=== PATIENT | male | born 1945 | race Caucasian/White ===

== ENCOUNTER → 2017-03-26 | Day surgery (SDC) | payer MEDICARE, BC ==
[2017-03-25 10:14] LABS: BASOPHILS # (AUTO) 0.1 (0.0-0.1); BASOPHILS % 0.7 % (0.0-1.0); EOSINOPHILS # (AUTO) 0.2 (0.0-0.4); EOSINOPHILS % 2.2 % (0.0-6.0); HEMOGLOBIN 15.4 g/dL (14.0-18.0); LYMPHOCYTES # (AUTO) 1.8 (1.0-3.2); LYMPHOCYTES % 26.9 % (18.0-39.1); MEAN CORPUSCULAR HEMOGLOBIN 31.2 pg (28-32); MEAN CORPUSCULAR HGB CONC 33.5 g/dL (31-35); MEAN CORPUSCULAR VOLUME 93.1 fL (81-99); MONOCYTES # (AUTO) 0.7 (0.2-0.8); MONOCYTES % 10.6 % (4.4-11.3); NEUTROPHILS # (AUTO) 3.9 (2.1-6.9); NEUTROPHILS % 58.7 % (38.7-80.0); PLATELET COUNT 196 x10e3/uL (140-360); RED BLOOD COUNT 4.94 x10e6/uL (4.3-5.7); RED CELL DISTRIBUTION WIDTH 14.6 % (11.7-14.4)
[2017-03-25 10:38] LABS: ALANINE AMINOTRANSFERASE 42 IU/L (0-55); ALBUMIN/GLOBULIN RATIO 1.3 (0.8-2.0); ALKALINE PHOSPHATASE 88 IU/L (40-150); ANION GAP 12.6 mmol/L (8-16); BLOOD UREA NITROGEN 12 mg/dL (7-26); BUN/CREATININE RATIO 13 (6-25); CARBON DIOXIDE 26 mmol/L (22-29); CHLORIDE 110 mmol/L (98-107); CHOL/HDL RATIO 3.2 (3.9-4.7); CHOLESTEROL 134 MD/DL (0-199); CREATININE, SERUM 0.91 mg/dL (0.72-1.25); EST GLOMERULAR FILTRATION RATE > 60 ML/MIN (60-); GLUCOSE 102 mg/dL (74-118); HDL CHOLESTEROL 42 MG/DL (40-60); LDL CHOLESTEROL 80 MG/DL (60-130); POTASSIUM 4.6 mmol/L (3.5-5.1); SODIUM 144 mmol/L (136-145); TRIGLYCERIDES 61 MG/DL (0-149)
[~2017-03-26] VITALS: Ht 172.7 cm; Wt 81.6 kg
[~2017-03-26] MED LIST: ASPIRIN 325 MG TAB ONE; ASPIRIN325 MG PO; ATENOLOL25 MG; ATENOLOL50 MG PO; ATORVASTATIN CA20 MG PO; BIVALIRUDIN 250 MG/VIAL IV ONE; CLOPIDOGREL75 MG PO; FENTANYL CITRATE/PF 100MCG/2 ML INJ ONE; FINASTERIDE5 MG; FINASTERIDE5 MG PO; FLOMAX0.4 MG PO; HEPARIN SOD/SOD CHLORIDE 2,000 ML ONE; IOPAMIDOL 370 MG/ML 200 ML INFUS..BTL INJ ONE; LIDOCAINE HCL 2% LOCAL 20 ML VIAL ONE; LOTREL 10-20 M1 EACH; METFORMIN HCL500 MG PO; MIDAZOLAM HCL 2 MG/2 ML VIAL ONE; MULTIVITAMIN; NITROGLYCERIN/D5W 200 MCG/ML 250 ML ONE; OMEGA 3 1,0001 EACH; PLAVIX75 MG PO; PRASUGREL 10 MG TAB ONE; SIMCOR 1,000-21 EACH; SODIUM CHLORIDE 0.9% 1000ML 1,000 ML IV SCH; SODIUM CHLORIDE 0.9% 1000ML 1,000 ML ONE; SODIUM CHLORIDE 0.9% 50ML 50 ML ONE; SYNTHROID175 MCG; TAMSULOSIN HCL0.4 MG; VICODIN ES 7.51 EACH PO; VITAMIN E400 UNI3
--- NOTE | 2017-03-26 14:55 | Operative Report ---
DATE OF PROCEDURE: March 26, 2017 PROCEDURES PERFORMED: 1. Left heart catheterization, selective coronary angiography. 2. Selective cannulation of 3 venous and 1 arterial bypass conduits. 3. Percutaneous transluminal coronary angioplasty and drug-eluting stent placement to the proximal circumflex artery. 4. Abdominal aortogram runoff to bilateral lower extremities. 5. Deployment of right groin Perclose. COMPLICATIONS: None. RECOMMENDATIONS: Continue dual antiplatelet therapy. Staged intervention on the right saphenous vein bypass to right posterior descending artery as well as staged intervention on the left superficial femoral artery with atherectomy and angioplasty. BLOOD LOSS: 10 mL. CONTRAST USED: 200 mL. Access obtained in the right femoral artery. A 6-Hong Konger sheath was placed. Abdominal aortogram with runoff was performed with diffuse disease in the abdominal aorta and iliac arteries. There was luminal stenosis of 30% without any focal stenosis, bilateral femoral arteries diffuse 30% to 50% with focal 90% stenosis of the left femoral artery in the midportion, which was heavily calcified. Infrapopliteal vessels were not well visualized. Pulmonary angiography demonstrates 20% stenosis of the left main. Left anterior descending artery stent was widely patent. Diagonal artery was occluded. Circumflex artery proximal 90% stenosis. Obtuse marginal branch had competitive filling, which was bypass. Right coronary artery was completely occluded in its proximal portion. Left internal mammary artery was not used for bypass. Saphenous vein bypass of obtuse marginal artery was widely patent. Saphenous vein bypass to right posterior descending artery was patent. However, at distal anastomosis 90% focal stenosis was noted. Saphenous vein bypass to the diagonal artery had extremely slow flow, and this was a large vessel with pooling. LV end-diastolic pressure of 18. No gradient across the aortic valve on pullback. A decision was made to intervene on the [place] circumflex artery. The patient received intravenous Angiomax and oral Effient for anticoagulation. The left main was cannulated using a 6-Hong Konger XB 3.5 guiding catheter. A short Runthrough wire was advanced across the lesion into the distal circumflex for support. Pre-dilatation with a 2 mm balloon, following which a single 2.5 x 28 mm Synergy drug-eluting stent was deployed at 14 atmospheres. Postdilated with a 2.75 mm balloon at 18 atmospheres with excellent end result less than 10% residual stenosis, LENI-3 flow. No complications encountered. Right groin repaired using Perclose. Patient observed in the hospital for 6 hours and then discharged home with recommendations for staged intervention of the right posterior descending artery as well as the left superficial femoral artery. Job#: [id number] CONY
== END | disposition home or self-care (01) ==
LOC: CATH LAB 11:09
PROVIDERS: ATTEND Internal Medicine Interventional Cardiology
DX: I25.810 Atherosclerosis of coronary artery bypass graft(s) without angina pectoris (principal); I25.82 Chronic total occlusion of coronary artery; I10 Essential (primary) hypertension; R94.39 Abnormal result of other cardiovascular function study; Z95.1 Presence of aortocoronary bypass graft; Z01.812 Encounter for preprocedural laboratory examination; Z79.02 Long term (current) use of antithrombotics/antiplatelets; Z79.82 Long term (current) use of aspirin
CPT/HCPCS: 93459; C9600; 36140; 36415; 75630; 77002; 80053; 80061; 85025; J0583; J2001; J2250; J7030; Q9967

== ENCOUNTER 2017-04-13 08:40 | Observation (INO) | payer MEDICARE, BC ==
[~2017-04-13] VITALS: Ht 172.7 cm; Wt 88.0 kg
[~2017-04-13 08:40] MED LIST changes: -ASPIRIN 325 MG TAB ONE; -BIVALIRUDIN 250 MG/VIAL IV ONE; -FENTANYL CITRATE/PF 100MCG/2 ML INJ ONE; -HEPARIN SOD/SOD CHLORIDE 2,000 ML ONE; -IOPAMIDOL 370 MG/ML 200 ML INFUS..BTL INJ ONE; -LIDOCAINE HCL 2% LOCAL 20 ML VIAL ONE; -MIDAZOLAM HCL 2 MG/2 ML VIAL ONE; -NITROGLYCERIN/D5W 200 MCG/ML 250 ML ONE; -PRASUGREL 10 MG TAB ONE; -SODIUM CHLORIDE 0.9% 1000ML 1,000 ML IV SCH; -SODIUM CHLORIDE 0.9% 1000ML 1,000 ML ONE; -SODIUM CHLORIDE 0.9% 50ML 50 ML ONE
[2017-04-13 09:43] LABS: BASOPHILS % 0.7 % (0.0-1.0); EOSINOPHILS # (AUTO) 0.2 (0.0-0.4); EOSINOPHILS % 3.2 % (0.0-6.0); HEMATOCRIT 46.8 % (38.2-49.6); HEMOGLOBIN 16.1 g/dL (14.0-18.0); LYMPHOCYTES # (AUTO) 1.6 (1.0-3.2); LYMPHOCYTES % 29.4 % (18.0-39.1); MEAN CORPUSCULAR HEMOGLOBIN 31.2 pg (28-32); MEAN CORPUSCULAR HGB CONC 34.4 g/dL (31-35); MEAN CORPUSCULAR VOLUME 90.7 fL (81-99); MONOCYTES # (AUTO) 0.6 (0.2-0.8); MONOCYTES % 10.6 % (4.4-11.3); NEUTROPHILS # (AUTO) 3.1 (2.1-6.9); NEUTROPHILS % 55.9 % (38.7-80.0); PLATELET COUNT 188 x10e3/uL (140-360); RED BLOOD COUNT 5.16 x10e6/uL (4.3-5.7); RED CELL DISTRIBUTION WIDTH 13.7 % (11.7-14.4)
[2017-04-13 10:15] LABS: ALANINE AMINOTRANSFERASE 39 IU/L (0-55); ALBUMIN 3.9 g/dL (3.5-5.0); ALBUMIN/GLOBULIN RATIO 1.2 (0.8-2.0); ALKALINE PHOSPHATASE 81 IU/L (40-150); ANION GAP 12.8 mmol/L (8-16); BLOOD UREA NITROGEN 13 mg/dL (7-26); BUN/CREATININE RATIO 15 (6-25); CALCIUM 8.9 mg/dL (8.4-10.2); CARBON DIOXIDE 24 mmol/L (22-29); CHLORIDE 107 mmol/L (98-107); CREATININE, SERUM 0.89 mg/dL (0.72-1.25); EST GLOMERULAR FILTRATION RATE > 60 ML/MIN (60-); GLUCOSE 125 mg/dL (74-118); POTASSIUM 3.8 mmol/L (3.5-5.1); SODIUM 140 mmol/L (136-145)
[2017-04-13 10:31] VITALS: BP 150/83
[2017-04-13] MEDS ORDERED: IOPAMIDOL 370 MG/ML 200 ML INFUS..BTL INJ ONE ×2 (10:50→11:25)
[2017-04-13] MEDS ORDERED: HEPARIN SOD/SOD CHLORIDE 2,000 ML ONE ×2 (10:50→10:51)
[2017-04-13] MEDS ORDERED: LIDOCAINE HCL 2% LOCAL 20 ML VIAL ONE (10:50)
[2017-04-13] MEDS ORDERED: MIDAZOLAM HCL 2 MG/2 ML VIAL ONE ×2 (10:50→11:18)
[2017-04-13] MEDS ORDERED: FENTANYL CITRATE/PF 100MCG/2 ML INJ ONE (10:50)
[2017-04-13] MEDS ORDERED: SODIUM CHLORIDE 0.9% 1000ML 1,000 ML ONE (10:51)
[2017-04-13] MEDS ORDERED: SODIUM CHLORIDE 0.9% 50ML 50 ML ONE (11:05)
[2017-04-13] MEDS ORDERED: BIVALIRUDIN 250 MG/VIAL IV ONE (11:05)
[2017-04-13] MEDS ORDERED: PRASUGREL 10 MG TAB ONE (11:41)
[2017-04-13 12:33] VITALS: BP 130/71
[2017-04-13 13:14] VITALS: BP 130/71
--- NOTE | 2017-04-13 16:08 | Operative Report ---
DATE OF PROCEDURE: April 13, 2017 INDICATIONS: Coronary artery disease, abnormal stress test. PROCEDURES PERFORMED 1. Selective cannulation of venous bypass conduit with coronary angiography and left heart catheterization. 2. Percutaneous transluminal coronary angioplasty and drug-eluting stent placement to the saphenous vein bypass graft to the right coronary artery. 3. Deployment of right groin Perclose. COMPLICATIONS: None. RECOMMENDATIONS: Dual-antiplatelet therapy for life. Access obtained in the right femoral artery. A 6-Niuean sheath was placed. The saphenous vein bypass graft was cannulated using a multipurpose 6-Niuean catheter. Angio-Max was used for anticoagulation. A short PhotoMania wire was advanced across the lesion for support. Pre-dilatation with a 2 mm balloon, following which a single 2.25 x 20 mm Whately [employer] Synergy stent was deployed at 14 atmospheres, post-dilated with a 3 mm balloon. Excellent end result, LENI-3 flow, less than 10% residual stenosis. No complications. Right groin sheath was repaired using Perclose. Patient was observed in the hospital for 6 hours and discharged home the same day. Job#: [id number] VAS
[2017-04-13 17:06] VITALS: BP 161/77
== END 2017-04-13 18:33 | disposition home or self-care (01) ==
LOC: CATH LAB 08:40 → IMCU 12:32
PROVIDERS: ADMIT Internal Medicine Interventional Cardiology; ATTEND Internal Medicine Interventional Cardiology
DX: I25.10 Atherosclerotic heart disease of native coronary artery without angina pectoris (principal); I10 Essential (primary) hypertension; R94.39 Abnormal result of other cardiovascular function study; Z86.73 Personal history of transient ischemic attack (TIA), and cerebral infarction without residual deficits; Z95.1 Presence of aortocoronary bypass graft
CPT/HCPCS: 92921; C9600; C9604; 36140; 36415; 77002; 80053; 82948; 85025; 92920; C1769; G0378; J0583; J2001; J2250; J7030; Q9967

== ENCOUNTER → 2017-05-04 | Day surgery (SDC) | payer MEDICARE, BC ==
[2017-05-03 09:27] LABS: BASOPHILS % 0.5 % (0.0-1.0); EOSINOPHILS # (AUTO) 0.2 (0.0-0.4); EOSINOPHILS % 3.9 % (0.0-6.0); HEMATOCRIT 46.9 % (38.2-49.6); HEMOGLOBIN 15.8 g/dL (14.0-18.0); LYMPHOCYTES # (AUTO) 1.5 (1.0-3.2); LYMPHOCYTES % 33.6 % (18.0-39.1); MEAN CORPUSCULAR HEMOGLOBIN 31.2 pg (28-32); MEAN CORPUSCULAR HGB CONC 33.7 g/dL (31-35); MEAN CORPUSCULAR VOLUME 92.5 fL (81-99); MONOCYTES # (AUTO) 0.5 (0.2-0.8); MONOCYTES % 12.3 % (4.4-11.3); NEUTROPHILS # (AUTO) 2.2 (2.1-6.9); NEUTROPHILS % 49.2 % (38.7-80.0); PLATELET COUNT 190 x10e3/uL (140-360); RED BLOOD COUNT 5.07 x10e6/uL (4.3-5.7); RED CELL DISTRIBUTION WIDTH 13.3 % (11.7-14.4)
[2017-05-03 09:51] LABS: ALANINE AMINOTRANSFERASE 33 IU/L (0-55); ALBUMIN 3.4 g/dL (3.5-5.0); ALKALINE PHOSPHATASE 93 IU/L (40-150); ANION GAP 12.6 mmol/L (8-16); BLOOD UREA NITROGEN 17 mg/dL (7-26); BUN/CREATININE RATIO 17 (6-25); CALCIUM 8.8 mg/dL (8.4-10.2); CARBON DIOXIDE 25 mmol/L (22-29); CHLORIDE 106 mmol/L (98-107); EST GLOMERULAR FILTRATION RATE > 60 ML/MIN (60-); GLUCOSE 169 mg/dL (74-118); POTASSIUM 3.6 mmol/L (3.5-5.1); SODIUM 140 mmol/L (136-145)
[~2017-05-04] VITALS: Ht 174 cm; Wt 81.6 kg
[~2017-05-04] MED LIST changes: +FENTANYL CITRATE/PF 100MCG/2 ML INJ ONE; +GLIMEPIRIDE2 MG PO; +HEPARIN SOD (PORCINE) 1000 UNIT/ML 30ML ONE; +HEPARIN SOD/SOD CHLORIDE 2,000 ML ONE; +IOPAMIDOL 300MG/ML 100 ML INFUS..BTL IV ONE; +LIDOCAINE HCL 2% LOCAL 20 ML VIAL ONE; +MIDAZOLAM HCL 2 MG/2 ML VIAL ONE; +NITROGLYCERIN/D5W 200 MCG/ML 250 ML ONE; +PRASUGREL 10 MG TAB ONE; +SODIUM CHLORIDE 0.9% 1000ML 1,000 ML ONE; +VERAPAMIL HCL 2.5 MG/ML 2 ML VIAL ONE
--- NOTE | 2017-05-04 10:51 | Operative Report ---
DATE OF PROCEDURE: May 04, 2017 INDICATIONS: Peripheral arterial disease, claudication of the left lower extremity. PROCEDURES PERFORMED 1. Third order catheter placement from the right femoral artery to the left superficial femoral artery for unilateral extremity angiogram. 2. Additional 3rd-order catheter placement from the right femoral artery to the left posterior tibial artery with additional vessel angiogram. 3. Atherectomy and drug-coated balloon angioplasty to the left femoral artery. 4. Secondary thrombectomy of the left femoral artery. 5. Deployment of right groin Perclose. COMPLICATIONS: None. RECOMMENDATIONS: Continued antiplatelet therapy for life. Access was obtained in the right femoral artery. A 6-Turkmen sheath was placed and then advanced from the right femoral artery to the left superficial femoral artery. A 90% heavily calcified stenosis of the mid left superficial femoral artery was noticed. The lesions were crossed. The catheter was advanced to the right posterior tibial artery (additional 3rd-order catheter placement) confirming 2-vessel runoff via the peroneal and posterior tibial arteries. A decision was made to intervene on the left femoral artery. The patient received 10,000 units of intra-arterial heparin and oral Effient for anticoagulation. The lesion was crossed using a Roadrunner wire. The wire was exchanged to a ViperWire. Orbital atherectomy using a 1.5-mm [place] was performed. Large amounts of visible thrombus necessitating manual aspiration thrombectomy of the left femoral artery. Balloon angioplasty using a cutting balloon and then drug-coated balloon with a 6-mm balloon was performed with excellent end result. Two-vessel runoff, less than 10% residual stenosis. Right groin repaired using Perclose. Patient observed in the hospital for 2 hours and discharged home the same day. Job#: [id number]
== END | disposition home or self-care (01) ==
LOC: CATH LAB 07:14
PROVIDERS: ATTEND Internal Medicine Interventional Cardiology
DX: I70.218 Atherosclerosis of native arteries of extremities with intermittent claudication, other extremity (principal); I25.10 Atherosclerotic heart disease of native coronary artery without angina pectoris; Z01.812 Encounter for preprocedural laboratory examination
CPT/HCPCS: 36415; 37186; 37225; 80053; 85025; C1724; C1725 ×2; C1769 ×2; C1887; J1644; J2001; J2250; J7030; Q9967; 36140; 75710; 77002; C2623

== ENCOUNTER → 2018-12-06 | Day surgery (SDC) | payer MEDICARE, BC ==
[2018-12-01 11:58] LABS: BASOPHILS % 0.5 % (0.0-1.0); EOSINOPHILS # (AUTO) 0.1 (0.0-0.4); EOSINOPHILS % 1.6 % (0.0-6.0); HEMATOCRIT 45.2 % (38.2-49.6); HEMOGLOBIN 15.8 g/dL (14.0-18.0); LYMPHOCYTES # (AUTO) 1.5 (1.0-3.2); LYMPHOCYTES % 27.7 % (18.0-39.1); MEAN CORPUSCULAR HEMOGLOBIN 31.5 pg (28-32); MEAN CORPUSCULAR VOLUME 90.2 fL (81-99); MONOCYTES # (AUTO) 0.6 (0.2-0.8); MONOCYTES % 11.2 % (4.4-11.3); NEUTROPHILS # (AUTO) 3.2 (2.1-6.9); NEUTROPHILS % 58.6 % (38.7-80.0); PLATELET COUNT 190 x10e3/uL (140-360); RED BLOOD COUNT 5.01 x10e6/uL (4.3-5.7); RED CELL DISTRIBUTION WIDTH 12.8 % (11.7-14.4)
[2018-12-01 12:21] LABS: ALANINE AMINOTRANSFERASE 51 IU/L (0-55); ALBUMIN/GLOBULIN RATIO 1.4 (0.8-2.0); ALKALINE PHOSPHATASE 82 IU/L (40-150); ANION GAP 11.9 mmol/L (8-16); BLOOD UREA NITROGEN 18 mg/dL (7-26); BUN/CREATININE RATIO 19 (6-25); CALCIUM 9.1 mg/dL (8.4-10.2); CARBON DIOXIDE 27 mmol/L (22-29); CHLORIDE 99 mmol/L (98-107); CREATININE, SERUM 0.93 mg/dL (0.72-1.25); EST GLOMERULAR FILTRATION RATE > 60 ML/MIN (60-); GLUCOSE 170 mg/dL (74-118); POTASSIUM 3.9 mmol/L (3.5-5.1); SODIUM 134 mmol/L (136-145)
[~2018-12-06] VITALS: Ht 174 cm; Wt 81.6 kg
[2018-12-06] VITALS (13 sets, daily range): BP systolic 117–168; BP diastolic 66–86
[~2018-12-06] MED LIST changes: +ASPIRIN 325 MG TAB ONE; +COQ-10100 MG PO; +FISH OIL 1,2001 EACH PO; +IOPAMIDOL 370 MG/ML 200 ML INFUS..BTL INJ ONE; -LOTREL 10-20 M1 EACH; +LOTREL 10-20 M1 EACH PO; +SODIUM CHLORIDE 0.9% 50ML 50 ML ONE; -SYNTHROID175 MCG; +SYNTHROID175 MCG PO
--- OUTSIDE RECORDS SUMMARY | 2018-12-06 06:11 | XMS REPORT ---
Author Author [facility] Address Unknown Phone Unavailable Care Team Providers Care Early Childhood Education Specialist Name Role Phone Jazmin BERRY Unavailable Unavailable Problems This patient has no known problems. Allergies, Adverse Reactions, Alerts This patient has no known allergies or adverse reactions. Medications This patient has no known medications. Results Test Description Test Time Test Comments Text Results Atomic Results Result Comments CT BRAIN WO [place] [address] Patient Name: VA PAZ MR #: [id number] : 1945 Age/Sex: 71/M Req #: [id number] Adm Physician: Ordered by: JOHN BERRY MD Report #: [id number] Location: CARD Room/Bed: Procedure: [id number] CT/CT BRAIN WO Exam Date: 02/03/17 Exam Time: 1450 REPORT STATUS: Signed Exam: Head CT without contrast History: Dizziness, giddiness Comparison studies: Brain MRI 07/31/2013 Technique: Axial images were obtained from the skull base to the vertex. Coronal and sagittal images reconstructed from the axial data. Intravenous contrast: None Findings: Scalp: No abnormalities. Bones: No fractures, blastic or lytic lesions. Brain sulci: Mildly prominent. Ventricles: Normal in size and configuration. No hydrocephalus. Extra-axial spaces: No masses, no fluid collection. Parenchyma: No mass, acute hemorrhage or acute cortical vascular insults. Chronic right parieto-occipital insult with encephalomalacia and gliosis was subacute on 07/31/2013. Small chronic lacunar infarct in the right yuliya was acute on 07/31/2013. Ill-defined discrete and confluent hypodensities in the supratentorial white matter are nonspecific but most compatible with chronic small vessel ischemic changes. Sellar/suprasellar region: No abnormalities. Craniocervical junction: Patent foramen magnum. No Chiari one malformation. Incidental findings: Atherosclerotic calcifications in the carotid siphons and intradural vertebral arteries. Minimal nonspecific mucosal thickening within a right anterior ethmoid air cell. IMPRESSION: No acute abnormalities. Chronic findings: 1. Mild age-related generalized volume loss. 2. Moderate chronic small vessel ischemic changes. 3. 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 Signed by: Dr. Denisa Farr M.D. on 02/03/2017 3:13 PM Dictated By: DENISA FARR MD 1513 Transcribed By: KEELY on 02/03/17 1513 COPY TO: JOHN BERRY MD
--- NOTE | 2018-12-06 09:00 | NUR ---
0900 Bedside report received from KARLIE Watkins.Identiferx2. Alert oriented and appropriate, PERRLA, respirations even and unlabored to room air. Pulses x4 extremities equal and strong. Pedal pulses PT/DP x4 and marked. Cap fill brisk < 3 sec. Rt Groin with Mynx closure Site No gross issues pain,pallor,pressure or dysrhythmia. Skin warm and dry integrity appears D/I.IV 20g to left hand at 100cc hr via controller. presents healthy w/o s/s of infiltration or complaint. Abdomen soft and supple. pt offered toileting, denies need to urinate or defecate. No personal affects with patient. Family Alvina . Pt and family verbalizes understanding of POC. Currently w/o complaint of pain or need. Flat till 11am and may dc home. naldo/karlie
--- NOTE | 2018-12-06 11:00 | NUR ---
1100 Pt meets DC criteria.Rt groin Mynx site assessed for s/s of complication and presecence of hematoma. warm, dry, no discolor, and pulses present. IV removed from left hand. Distal tip appears intact. VS WNL. Pt denies pain, sob, or need at this time. Family at XXXXX. Review of discharge paperwork and follow up instructions. verbalized understanding. Pt to wheelchair and transported to front of hospital. Transferred to private vehicle under own strength w/o incident with DC paperwork in hand. -ds/rn
--- NOTE | 2018-12-06 12:29 | Operative Report ---
DATE OF PROCEDURE: 12/06/2018 SURGEON: Geremias Cedillo MD INDICATIONS: 1. Coronary artery disease, abnormal stress test. 2. Peripheral arterial disease and claudication. PROCEDURES PERFORMED: 1. Left heart catheterization, selective coronary angiography. 2. Selective cannulation. 3. Venous bypass conduits. 4. Abdominal aortogram runoff to bilateral femoral arteries. 5. Selective catheter placement from the right femoral artery to the left superficial femoral artery with unilateral extremity angiogram (third-order catheter placement). 6. Additional third-order catheter placement from right femoral artery to left anterior tibial artery. 7. Atherectomy and drug balloon angioplasty of the left femoral artery. 8. Secondary thrombectomy of the left femoral artery. 9. Deployment of right groin Mynx closure device. COMPLICATIONS: None. RECOMMENDATIONS: Dual antiplatelet therapy for life. DESCRIPTION OF PROCEDURE: Access obtained in the right femoral artery. A 6-Palauan sheath was placed. Coronary angiography demonstrated heavily calcified coronary vessels. Left main 50% stenosis. Left anterior descending artery stent was widely patent, diffuse 30% to 50% stenosis in this vessel. Circumflex stent was widely patent. Right coronary artery is completely occluded. Saphenous vein bypass graft to diagonal artery was patent but had very poor LENI-1 flow. Saphenous vein bypass graft to obtuse marginal branch was widely patent. Saphenous vein bypass graft to the right posterior descending had patent stents and was widely patent. LV end-diastolic pressure of 10. Abdominal aortogram was performed with moderate calcification and ectatic abdominal aorta and iliacs bilaterally, diffuse 30% to 50% stenosis in bilateral iliacs. Femoral arteries are not well visualized. The catheter was then advanced from the right femoral artery to the left superficial femoral artery, 50% stenosis in the right external iliac as well as superficial femoral artery with 80% stenosis in the left proximal femoral artery with heavy calcification. Infrapopliteal vessels were not well seen. The catheter was then advanced from the right femoral artery to the left anterior tibial artery with two-vessel runoff bilaterally. A decision was made to intervene on the left superficial femoral artery. The patient received 10,000 units of intravenous heparin for anticoagulation. The sheath was exchanged to a 6-Palauan 45 cm sheath advanced from the right femoral artery to the left superficial femoral artery. The lesion was crossed using a Glidewire which was exchanged to a Viper wire. Orbital atherectomy using a 2 mm CSI diamondback crown was performed, large amounts of visible thrombus necessitating aspiration secondary thrombectomy. Balloon angioplasty with a 7 x 40 mm drug-coated balloon was performed with excellent end result, less than 20% residual stenosis two-vessel runoff to the left foot. No complications. Right groin repaired using Mynx closure device. The patient was discharged home same day. MD CARMEN Wright/SHERWIN /[id number]
== END | disposition home or self-care (01) ==
LOC: CATH LAB 06:03
PROVIDERS: ATTEND Internal Medicine Interventional Cardiology
DX: I25.810 Atherosclerosis of coronary artery bypass graft(s) without angina pectoris (principal); I70.213 Atherosclerosis of native arteries of extremities with intermittent claudication, bilateral legs; R94.39 Abnormal result of other cardiovascular function study; Z01.812 Encounter for preprocedural laboratory examination; Z79.84 Long term (current) use of oral hypoglycemic drugs; Z79.02 Long term (current) use of antithrombotics/antiplatelets; Z79.82 Long term (current) use of aspirin; Z95.5 Presence of coronary angioplasty implant and graft
CPT/HCPCS: 36415; 37186; 37225; 75630; 80053; 85025; 93455; C1724; C1760; C1769 ×2; C1887; C2623; J1644; J2001; J2250; J3010; J7030; Q9967 ×2; 36247

== ENCOUNTER → 2019-05-26 | Outpatient (CLI) | payer MEDICARE, BC ==
[~2019-05-26] MED LIST changes: -ASPIRIN 325 MG TAB ONE; -FENTANYL CITRATE/PF 100MCG/2 ML INJ ONE; -HEPARIN SOD (PORCINE) 1000 UNIT/ML 30ML ONE; -HEPARIN SOD/SOD CHLORIDE 2,000 ML ONE; -IOPAMIDOL 300MG/ML 100 ML INFUS..BTL IV ONE; -LIDOCAINE HCL 2% LOCAL 20 ML VIAL ONE; -MIDAZOLAM HCL 2 MG/2 ML VIAL ONE; -NITROGLYCERIN/D5W 200 MCG/ML 250 ML ONE; -PRASUGREL 10 MG TAB ONE; -SODIUM CHLORIDE 0.9% 1000ML 1,000 ML ONE; -VERAPAMIL HCL 2.5 MG/ML 2 ML VIAL ONE
[2019-05-26 10:07] LABS: BLOOD UREA NITROGEN 18 mg/dL (7-26); BUN/CREATININE RATIO 16 (6-25); CREATININE, SERUM 1.14 mg/dL (0.72-1.25); EST GLOMERULAR FILTRATION RATE > 60 ML/MIN (60-)
--- NOTE | 2019-05-26 11:06 | Diagnostic Imaging Report ---
CT of the abdomen and pelvis, with contrast, 05/26/2019. History: Anemia, stones. Comparison: 05/20/2015. Technique: Multidetector CT scanning of the abdomen and pelvis was performed from the level of the lung bases to the inferior pubic rami after intravenous administration of contrast. Coronal and sagittal multiplanar reformations were obtained. RADIATION DOSE: Total DLP: 675 mGy*cm Dose modulation, iterative reconstruction, and/or weight based adjustment of the mA/kV was utilized to reduce the radiation dose to as low as reasonably achievable. Discussion: LUNG BASES: A calcified granuloma is present in the right lower lobe. ABDOMEN: A 5 cm oval circumscribed benign cyst is again seen in the anterior aspect of the left kidney. Vascular calcifications are noted centrally. There is no evidence of nephrolithiasis, hydronephrosis, or mass. The right kidney is normal. A single 1.7 cm stone is present within the gallbladder. There is no gallbladder wall thickening. The liver, biliary tree, spleen, pancreas, and adrenal glands are normal. The hepatic vein, portal vein, and splenic vein are patent. The abdominal aorta is noncalcified but within normal limits for size. A diverticulum is again seen in the posterior aspect of the gastric fundus, containing hyperdense material posteriorly. The small bowel is unremarkable. The appendix is not visualized but there is no evidence of inflammation in the right lower quadrant. Multiple diverticuli are present within the descending and sigmoid colon without evidence of adjacent inflammation. There is no evidence of adenopathy or free fluid. PELVIS: The bladder, prostate, and seminal vesicles are normal in appearance. There is no evidence of free fluid or adenopathy. BONES AND SOFT TISSUES: Degenerative changes are present throughout the lumbar spine without evidence of lytic or sclerotic lesion. IMPRESSION: 1. Benign left renal cyst without change. Otherwise unremarkable kidneys. No evidence of nephrolithiasis. 2. Gastric fundal diverticulum is again noted. 3. Cholelithiasis. 4. Colonic diverticulosis without evidence of diverticulitis. Signed by: Eliud Aaron on 05/26/2019 11:04 AM
== END ==
LOC: CT 09:20
PROVIDERS: ATTEND Internal Medicine Medical Oncology
DX: N20.0 Calculus of kidney (principal); D64.9 Anemia, unspecified
CPT/HCPCS: 36415; 74177; 82565; 84520; Q9967

== ENCOUNTER 2020-01-11 12:43 | Inpatient (IN) | payer MEDICARE, BC ==
[~2020-01-11] VITALS: Ht 175.3 cm; Wt 86.2 kg
[~2020-01-11 12:43] MED LIST changes: -IOPAMIDOL 370 MG/ML 200 ML INFUS..BTL INJ ONE; -SODIUM CHLORIDE 0.9% 50ML 50 ML ONE
--- OUTSIDE RECORDS SUMMARY | 2020-01-11 12:49 | XMS REPORT | Continuity of Care Document ---
Author Author [facility] Organization [facility] Address [address] [place] [address] Dr. Frank [address] [place] [id number] Phone Unavailable Care Team Providers Care Knockout Machine Operator Name Role Phone MAK PETTY Attphys Unavailable Jazmin BERRY Attphys Unavailable Problems This patient has no known problems. Allergies, Adverse Reactions, Alerts This patient has no known allergies or adverse reactions. Medications This patient has no known medications. Procedures This patient has no known procedures. Results Test Description Test Time Test Comments Results Result Comments Source CT ABDOMEN/PELVIS W 2019-05-26 10:54:00 [place] [address] Patient Name: VA PAZ MR #: [id number] : 1945 Age/Sex: 74/M Req #: [id number] Adm Physician: Ordered by: MAK PETTY MD Report #: [id number] Location: CT Room/Bed: Procedure: [id number] CT/CT ABDOMEN/PELVIS W Exam Date: 05/26/19 Exam Time: 1010 REPORT STATUS: Signed CT of the abdomen and pelvis, with contrast, 05/26/2019. History: Anemia, stones. Comparison: 05/20/2015. Technique: Multidetector CT scanning of the abdomen and pelvis was performed from the level of the lung bases to the inferior pubic rami after intravenous administration of contrast. Coronal and sagittal multiplanar reformations were obtained. RADIATION DOSE: Total DLP: 675 mGy*cm Dose modulation, iterative reconstruction, and/or weight based adjustment of the mA/kV was utilized to reduce the radiation dose to as low as reasonably achievable. Discussion: LUNG BASES: A calcified gra nuloma is present in the right lower lobe. ABDOMEN: A 5 cm oval circumscribed benign cyst is again seen in the anterior aspect of the left kidney. Vascular calcifications are noted centrally. There is no evidence of nephrolithiasis, hydronephrosis, or mass. The right kidney is normal. A single 1.7 cm stone is present within the gallbladder. There is no gallbladder wall thickening. The liver, biliary tree, spleen, pancreas, and adrenal glands are normal. The hepatic vein, portal vein, and splenic vein are patent. The abdominal aorta is noncalcified but within normal limits for size. A diverticulum is again seen in the posterior aspect of the gastric fundus, containing hyperdense material posteriorly. The small bowel is unremarkable. The appendix is not visualized but there is no evidence of inflammation in the right lower quadrant. Multiple diverticuli are present within the descending and sigmoid colon without evidence of adjacent inflammation. There is no evidence of adenopathy or free fluid. PELVIS: The bladder, prostate, and seminal vesicles are normal in appearance. There is no evidence of free fluid or adenopathy. BONES AND SOFT TISSUES: Degenerative changes are present throughout the lumbar spine without evidence of lytic or sclerotic lesion. IMPRESSION: 1. Benign left renal cyst without change. Otherwise unrema rkable kidneys. No evidence of nephrolithiasis. 2. Gastric fundal diverticulum is again noted. 3. Cholelithiasis. 4. Colonic diverticulosis without evidence of diverticulitis. Signed by: Eliud Aaron on 05/26/2019 11:04 AM Dictated By: ELIUD AARON MD 03 Transcribed By: KEELY on 05/26/191103 COPY TO: MAK PETTY MD CT BRAIN WO [facility] [address] [place] [address] Patient Name: VA PAZ MR #: [id number] : 1945 Age/Sex: 71/M Req #: [id number] Adm Physician: Ordered by: JOHN BERRY MD Report #: [id number] Location: CARD Room/Bed: Procedure: [id number] CT/CT BRAIN WO Exam Date: 02/03/17 Exam [...] pontine lacunar infarct. Signed by: Dr. Denisa Dupree M.D. on 02/03/2017 3:13 PM Dictated By: DENISA DUPREE MD 12 Transcribed By: KEELY on 02/03/171512 COPY TO: JOHN BERRY MD
[2020-01-11 13:40] VITALS: BP 145/63
--- NOTE | 2020-01-11 13:50 | NUR ---
pt arrived to unit resp even and unlabored at this time, no c/o pain when asked. pt able to make needs known, pt oriented to room and call light, bed in lowest position, bed rail up x2, will cont to monitor.
[2020-01-11] MEDS ORDERED: SODIUM CHLORIDE 0.9% 250ML 250 ML IV ONE (14:00)
[2020-01-11] MEDS ORDERED: ASPIRIN 81 MG CHEW TAB PO ONE (14:00)
[2020-01-11 16:01] LABS: BASOPHILS % 0.3 % (0.0-1.0); EOSINOPHILS % 0.5 % (0.0-6.0); LYMPHOCYTES # (AUTO) 1.1 (1.0-3.2); LYMPHOCYTES % 16.5 % (18.0-39.1); MEAN CORPUSCULAR HEMOGLOBIN 24.8 pg (28-32); MEAN CORPUSCULAR HGB CONC 29.6 g/dL (31-35); MEAN CORPUSCULAR VOLUME 83.8 fL (81-99); MONOCYTES # (AUTO) 0.5 (0.2-0.8); MONOCYTES % 8.2 % (4.4-11.3); NEUTROPHILS # (AUTO) 4.9 (2.1-6.9); NEUTROPHILS % 74.2 % (38.7-80.0); PLATELET COUNT 245 x10e3/uL (140-360); RED BLOOD COUNT 2.66 x10e6/uL (4.3-5.7); RED CELL DISTRIBUTION WIDTH 14.1 % (11.7-14.4)
[2020-01-11 16:05] LABS: HEMATOCRIT 22.3 % (38.2-49.6); HEMOGLOBIN 6.6 g/dL (14.0-18.0)
[2020-01-11 16:15] VITALS: BP 102/66
[2020-01-11 16:20] LABS: ALBUMIN/GLOBULIN RATIO 1.9 (0.8-2.0); ANION GAP 13.6 mmol/L (8-16); CALCIUM 8.3 mg/dL (8.4-10.2); CREATININE, SERUM 1.32 mg/dL (0.72-1.25); POTASSIUM 4.6 mmol/L (3.5-5.1)
[2020-01-11 16:42] LABS: % IRON SATURATION 4 % (15-50); IRON 14 ug/dL (65-175); TOTAL IRON BINDING CAPACITY 329 ug/dL (261-478); TRANSFERRIN 235 mg/dL (174-364)
[2020-01-11 16:52] LABS: CREATINE KINASE MB 3.2 ng/mL (0-5.0)
[2020-01-11] MEDS: METFORMIN HCL 500 MG TAB PO SCH (19:03)
--- NOTE | 2020-01-11 19:38 | NUR ---
Received charge of shift report from AM nurse. Walking rounds completed.
--- NOTE | 2020-01-11 19:38 | NUR ---
report given to oncoming nurse walking rounds complete.
[2020-01-11 20:00] VITALS: BP 122/71
[2020-01-11 20:43] VITALS: BP 122/71
[2020-01-11] MEDS: ATORVASTATIN 20 MG TAB PO SCH (21:00)
[2020-01-12] VITALS (8 sets, daily range): BP systolic 121–152; BP diastolic 64–79
--- NOTE | 2020-01-12 | NUR ---
Patient AAOx3. Denies pain at this time. Patient require 2 units of blood. BS at 190. Patient with no questions or c/o at this time. Continue monitor.
[2020-01-12] MEDS ORDERED: SODIUM CHLORIDE 0.9% 250ML 250 ML ONE ×2 (00:27→12:25)
--- NOTE | 2020-01-12 00:44 | Consultation ---
DATE OF CONSULTATION: Cardiology Consultation REASON FOR CONSULTATION: Anemia and syncope. HISTORY OF PRESENT ILLNESS: This is a 74-year-old man with a history of coronary artery disease status post coronary bypass graft surgery, presence of permanent pacemaker, paroxysmal atrial fibrillation, peripheral artery disease status post intervention with known residual disease in the right lower extremity, carotid artery disease, status post bilateral carotid artery stenting, hypertension, hyperlipidemia, and diabetes mellitus, who presented to the emergency department with lightheadedness, dizziness, and near syncope. He was scheduled to have a peripheral angiogram, however, his preop testing showed severe anemia and he was sent to the emergency department for continuation of his care. He denies any chest pain or shortness of breath. PAST MEDICAL HISTORY: As stated above. PAST SURGICAL HISTORY: As stated above. PAST FAMILY HISTORY: Noncontributory to current illness. SOCIAL HISTORY: No illicit drug, alcohol, or tobacco use. ALLERGIES: PENICILLIN. MEDICATIONS: See medication reconciliation form. REVIEW OF SYSTEMS: A 12-point review of system was conducted, is negative except as stated above in the HPI. PHYSICAL EXAMINATION: VITAL SIGNS: Temperature is 97.8, heart rate 67, respirations are 18, blood pressure is 102/66, oxygen saturation is 100% on room air. GENERAL: Well-appearing, well-built, in no apparent distress. Alert and oriented x3. HEAD: Normocephalic and atraumatic. EYES: Extraocular muscles are intact. Conjunctivae clear. NECK: No JVD. No bruits. CARDIOVASCULAR: Regular rate and rhythm. LUNGS: Clear to auscultation. ABDOMEN: Soft, nontender, and nondistended. EXTREMITIES: No clubbing, cyanosis, or edema. VASCULAR: 2+ pulses. SKIN: Warm, dry, and intact. NEUROLOGIC: No focal deficits noted. Cranial nerves grossly intact. PSYCHIATRIC: Normal mood and affect. LABORATORY DATA: Reviewed. Notable for hemoglobin is 6.6, creatinine 1.32. Troponin is 0.023. IMPRESSION: 1. Acute anemia, symptomatic. 2. Near syncope. 3. Coronary artery disease. 4. Carotid artery disease. 5. Peripheral artery disease. 6. History of coronary bypass graft surgery. 7. Presence of a permanent pacemaker. RECOMMENDATIONS: Agree with Gastroenterology evaluation and workup for his acute anemia. We will hold Xarelto for the time being. Continue current cardiovascular medications. Maintain on telemetry. We will continue to follow along with you. DO RIVERA Aj/SHERWIN /[id number]
[2020-01-12 00:46] LABS: CREATINE KINASE MB 2.8 ng/mL (0-5.0)
--- NOTE | 2020-01-12 01:00 | NUR ---
Blood started for patient with 6.8 hemoglobin. Blood drawn for cardiac enz. Patient with no c/o at this time.
--- NOTE | 2020-01-12 04:43 | NUR ---
Patient resting quitly at this time. Continue monitor.
[2020-01-12] MEDS: LEVOTHYROXINE SODIUM 100 MCG TAB PO SCH (05:37)
[2020-01-12] MEDS: LEVOTHYROXINE SODIUM 75 MCG TAB PO SCH (05:37)
--- NOTE | 2020-01-12 07:00 | NUR ---
RECEIVED BEDSIDE SHIFT REPORT FROM OFF GOING NIGHT NURSE. PATIENT IN STABLE CONDITION, NO S/S OF DISTRESS NOTED. RESPIRATIONS EVEN AND UNLABORED. BLOOD INFUSING AND 10 MINS FROM COMPLETING VITAL SIGNS STABLE. IV SITE ASYMPTOMATIC AND PATENT, TRANSPARENT DRESSING C/D/I. PACEMAKER NOTED. BED IN LOWEST POSITION AND LOCKED, SIDE RAILS X 2. CALL LIGHT WITHIN REACH.
[2020-01-12] MEDS: GLIMEPIRIDE 2 MG TAB PO SCH (08:00)
--- NOTE | 2020-01-12 08:10 | History and Physical ---
CHIEF COMPLAINT: The patient is a 74-year-old, who came into my office yesterday and had a syncopal episode. HISTORY OF PRESENT ILLNESS: This is Mr. Shaun Dodson, who is supposed to have seen Dr. Smalls, was not able to make it, came into my office, had a syncopal episode. As walking into the room, the patient was on the floor, oxygen was given. The patient's blood pressure was in 90s over 40s. Once the patient stabilized in the office, the patient was sent here with orders for blood transfusion. The patient has received so far 2 units of PRBCs, 2nd one ongoing. 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 MEDICATIONS: He takes at home are amlodipine, benazepril, Lotrel 10/20, aspirin 325, atorvastatin 20 mg, finasteride 5 mg, glimepiride 2 mg, levothyroxine 175 mcg, metformin 500 mg twice a day, and CoQ10. The patient also was taking Xarelto for his atrial fibrillation. PAST SURGICAL HISTORY: History of CABG, history of tonsillectomy and adenoidectomy, history of appendectomy, and history of thyroidectomy. SOCIAL HISTORY: No EtOH, history of smoking in the past. Currently no smoking. ALLERGIES: ALLERGIC TO PENICILLIN. REVIEW OF SYSTEMS: Positive for chest pain, positive for shortness of breath. No nausea. No vomiting. No diarrhea. No constipation. No rectal bleeding. No hematochezia. No hematemesis. No melena. No diplopia. No blurry vision. Extreme fatigue secondary to anemia. PHYSICAL EXAMINATION: VITAL SIGNS: Temperature is 97.9, pulse of 79, respirations of 19, blood pressure is 121/64, and pulse oximetry of 100%. HEENT: Normocephalic. Pallor present. CVS: S1 and S2, regular. ABDOMEN: Soft, nontender, and nondistended. EXTREMITIES: No clubbing, no cyanosis, no edema. LABORATORY VALUES: Initial white count of 6.6, hemoglobin of 6.6, hematocrit 22.3, platelet count is 245, and neutrophil count of 74.2. Chemistry shows sodium of 142, potassium 4.6, BUN of 20 and creatinine of 1.32 with an estimated GFR of 53, TIBC troponins x3 have been negative. Iron level is 14, TIBC of 329, percent saturation of 4, and transferrin of 234. ASSESSMENT: This is Mr. Shaun Dodson with; 1. Syncopal episode. 2. Symptomatic anemia with syncope. 3. Iron deficiency anemia. 4. Atrial fibrillation. 5. Coronary artery disease. 6. Peripheral arterial disease. 7. Hypothyroidism. 8. Hypertension. 9. Diabetes mellitus with complications. PLAN: Transfusion is ongoing. The patient will need iron infusions too. Dr. Smalls will be consulted, also a GI consult with Dr. Marito Gutierrez will be done to evaluate GI bleed. For now Xarelto and aspirin is on hold. We will continue to monitor the patient, hemodynamically stable. We will restart all other medications. Further recommendation per clinical course. We will continue to monitor the patient along with the consultants. Cardiology is already on board. He will need a stent in his lower extremities, which can be done as an outpatient basis when the patient is more stable. MD ALICIA MolinaJ/MODL /[id number]
[2020-01-12] MEDS ORDERED: EPA PO SCH (09:00)
[2020-01-12] MEDS ORDERED: AMLODIPINE BESYLATE 10 MG TAB PO SCH (09:00)
[2020-01-12] MEDS ORDERED: NON-FORMULARY MEDICATION (Amlodipine Besylate/Benazepril (Lotrel 10-20 Mg Capsule) 1 CAP) PO SCH (09:00)
[2020-01-12] MEDS ORDERED: DHA PO SCH (09:00)
[2020-01-12] MEDS ORDERED: FISH OIL PO SCH (09:00)
[2020-01-12] MEDS ORDERED: ASPIRIN 325 MG TAB PO SCH (09:00)
--- NOTE | 2020-01-12 09:00 | NUR ---
Pt. expressed no spiritual or emotional concerns at this time. Colliery Clerk provided hospitality and information on how to reach utilization review rn, if needed. No need to follow at this time. CHIQUI FLOREZ Colliery Clerk Spiritual Care Department O: [phone]
[2020-01-12] MEDS: METFORMIN HCL 500 MG TAB PO SCH ×2 (09:41→17:06)
[2020-01-12] MEDS: BENAZEPRIL HCL 10 MG TAB PO SCH (09:42)
[2020-01-12] MEDS: OMEGA 3 POLYUNSAT FATTY ACIDS 1000 MG SOFTGEL PO SCH (09:43)
[2020-01-12] MEDS: FINASTERIDE 5 MG TAB PO SCH (09:44)
[2020-01-12 11:24] LABS: BASOPHILS % 0.5 % (0.0-1.0); EOSINOPHILS # (AUTO) 0.1 (0.0-0.4); EOSINOPHILS % 1.6 % (0.0-6.0); HEMATOCRIT 31.8 % (38.2-49.6); HEMOGLOBIN 10.1 g/dL (14.0-18.0); LYMPHOCYTES # (AUTO) 1.5 (1.0-3.2); LYMPHOCYTES % 22.5 % (18.0-39.1); MEAN CORPUSCULAR HEMOGLOBIN 26.4 pg (28-32); MEAN CORPUSCULAR HGB CONC 31.8 g/dL (31-35); MEAN CORPUSCULAR VOLUME 83.2 fL (81-99); MONOCYTES # (AUTO) 0.7 (0.2-0.8); NEUTROPHILS # (AUTO) 4.1 (2.1-6.9); NEUTROPHILS % 64.1 % (38.7-80.0); PLATELET COUNT 239 x10e3/uL (140-360); RED BLOOD COUNT 3.82 x10e6/uL (4.3-5.7); RED CELL DISTRIBUTION WIDTH 14.6 % (11.7-14.4)
[2020-01-12 11:35] LABS: ANION GAP 11.4 mmol/L (8-16); BLOOD UREA NITROGEN 18 mg/dL (7-26); BUN/CREATININE RATIO 18 (6-25); CALCIUM 8.6 mg/dL (8.4-10.2); CARBON DIOXIDE 25 mmol/L (22-29); CHLORIDE 109 mmol/L (98-107); CREATININE, SERUM 1.02 mg/dL (0.72-1.25); EST GLOMERULAR FILTRATION RATE > 60 ML/MIN (60-); GLUCOSE 162 mg/dL (74-118); POTASSIUM 4.4 mmol/L (3.5-5.1); SODIUM 141 mmol/L (136-145)
[2020-01-12 11:43] LABS: CREATINE KINASE MB 3.1 ng/mL (0-5.0)
[2020-01-12] MEDS: IRON SUCROSE 100 MG in SODIUM CHLORIDE 0.9% 100 ML 100 ML IV SCH (12:17)
[2020-01-12 16:40] LABS: CREATINE KINASE MB 3.9 ng/mL (0-5.0)
--- NOTE | 2020-01-12 17:28 | History and Physical ---
I am covering for Dr. Dimitri Smalls . HISTORY OF PRESENT ILLNESS: This is a 74-year-old gentleman with a history of hypertension, coronary artery disease, peripheral arterial disease, hypothyroidism, diabetes, and BPH. The patient currently in hospital with syncopal episodes, fatigue, worsening generalized weakness, and lethargy. He was seen in Dr. Smalls's office and had syncopal episodes. The patient was diagnosed with symptomatic anemia. The patient was referred to hospital for further care. The patient denies any active GI bleed. His hemoglobin was 6.6 at admission. Creatinine was 1.32. Peripheral smear shows 83.8. The patient's anemia workup also shows iron deficiency. The patient received 2 units, not followup CBC available. PAST MEDICAL HISTORY: Hypertension, coronary artery disease, peripheral artery disease, diabetes, hypothyroidism, BPH. ALLERGIES: PENICILLIN. MEDICATIONS: Medication list was reviewed. PAST SURGICAL HISTORY: CABG, tonsillectomy, adenectomy, appendectomy, thyroidectomy. REVIEW OF SYSTEMS: As per HPI. PHYSICAL EXAMINATION: GENERAL: Alert, awake, communicative. HEENT: Normocephalic, atraumatic. Sclerae conjunctivae clear. NECK: Supple. CHEST: Decreased breath sounds on the bases, otherwise clear to auscultation. ABDOMEN: Soft, nontender. EXTREMITIES: No clubbing, cyanosis, or edema. LABS AND IMAGING: Reviewed. ASSESSMENT AND PLAN: The patient with history of multiple medical condition, currently in hospital with symptomatic anemia. The patient is a syncopal episode. Hemoglobin was 6.6 at admission. MCV was low normal. Anemia workup showed iron deficiency anemia. The patient received blood transfusion. Symptomatically doing better. Waiting to follow up with model and mold maker. The patient was on anticoagulation before admission, currently on hold. RECOMMENDATIONS: 1. We will start the patient on iron infusion. 2. Monitor CBC. 3. We will follow GI recommendation. 4. Coronary artery disease. 5. The patient currently following incoming inspector. 6. Hypertension. 7. Current blood pressure well controlled. 8. We will follow the patient closely. MD KD Phelps/SHERWIN /[id number]
--- NOTE | 2020-01-12 19:26 | NUR ---
COMPLETED BEDSIDE SHIFT REPORT AND ROUNDING WITH ONCOMING NIGHT NURSE. PATIENT IN STABLE CONDITION, NO S/S OF DISTRESS NOTED. RESPIRATIONS EVEN AND UNLABORED. IV SITE ASYMPTOMATIC AND PATENT, TRANSPARENT DRESSING C/D/I. PACEMAKER NOTED. BED IN LOWEST POSITION AND LOCKED, SIDE RAILS X 2. CALL LIGHT WITHIN REACH.
--- NOTE | 2020-01-12 19:32 | NUR ---
Received charge of shift report from AM nurse. Walking rounds completed.
[2020-01-12] MEDS: ATORVASTATIN 20 MG TAB PO SCH (20:24)
[2020-01-12] MEDS ORDERED: CITRATE OF MAGNESIA 300ML BOTTLE PO ONE ×3 (21:00→21:45)
[2020-01-12] MEDS ORDERED: BISACODYL 5 MG TAB EC PO ONE ×2 (21:30→22:00)
--- NOTE | 2020-01-12 23:47 | NUR ---
Patient resting quitly at this time. Received orders from Dr Gutierrez to prep for colo/EGD. Meds given to patient. Dr Gutierrez with see patient to explain procedure. Patient NPO in AM before breakfast.
[2020-01-13] VITALS (7 sets, daily range): BP systolic 93–145; BP diastolic 66–76
[2020-01-13] MEDS ORDERED: CYANOCOBALAMIN INJ 1,000 MCG/ML VIAL IM ONE (01:00)
--- NOTE | 2020-01-13 04:55 | NUR ---
Patient having loose bowels from prep. In the shower. Patient not clear at this time.
[2020-01-13] MEDS ORDERED: CITRATE OF MAGNESIA 300ML BOTTLE PO ONE ×2 (05:00)
[2020-01-13] MEDS: LEVOTHYROXINE SODIUM 100 MCG TAB PO SCH (05:28)
[2020-01-13] MEDS: LEVOTHYROXINE SODIUM 75 MCG TAB PO SCH (05:29)
--- NOTE | 2020-01-13 07:00 | NUR ---
RECEIVED BEDSIDE SHIFT REPORT FROM OFF GOING NIGHT NURSE. PATIENT IN STABLE CONDITION, NO S/S OF DISTRESS NOTED. RESPIRATIONS EVEN AND UNLABORED. IV SITE ASYMPTOMATIC AND PATENT, TRANSPARENT DRESSING C/D/I. PACEMAKER NOTED. BED IN LOWEST POSITION AND LOCKED, SIDE RAILS X 2, NONSKID SOCK APPLIED. CALL LIGHT WITHIN REACH.
--- NOTE | 2020-01-13 07:55 | Progress Note ---
DATE: SUBJECTIVE: A 74-year-old gentleman, who came in with syncopal episode. In my office, the patient was found to have a hemoglobin of 6.6. The patient has had 2 units of transfusion and also iron sucrose being infused. Currently asymptomatic, is n.p.o. for a scheduled EGD and a colonoscopy. MEDICATIONS: At this time; amlodipine, atorvastatin, finasteride, Nipride, levothyroxine, metformin, and fish oil. No chest pain or shortness of breath either documented. OBJECTIVE: VITAL SIGNS: Temperature is 97.6, pulse of 74, respirations of 18, blood pressure is 119/69 with a pulse oximetry of 98% on room air. HEENT: Normocephalic and atraumatic. CVS: S1 and S2. Regular at this time. ABDOMEN: Soft, nontender. EXTREMITIES: No clubbing, no cyanosis. Decreased pulses. LABORATORY VALUES: Hemoglobin is up to 10.1, hematocrit 31.8, and platelet count is 239. Chemistries; glucose is running in the 128. Vitamin B12 was 309, lower side. ASSESSMENT AND PLAN: This is Mr. Shaun Dodson with: 1. Syncopal episode secondary to symptomatic anemia. 2. History of acute myocardial infarction, ruled out. 3. Peripheral arterial disease. Continue with aspirin. 4. Possible gastrointestinal bleed, will be evaluated with colonoscopy and endoscopy today. 5. Iron deficiency and B12 deficiency. Continue with iron sucrose and B12 replacement. DISPOSITION AND PLAN: The patient can be discharged home. However, if any GI bleed is found, the patient needs to stop his anticoagulation with Eliquis or Xarelto and possible candidate for a Watchman procedure if Cardiology deems it necessary. Further recommendation per clinical course. We will continue to monitor the patient along with the consultants. MD VAHID Molina/MODL /[id number]
[2020-01-13] MEDS: METFORMIN HCL 500 MG TAB PO SCH ×3 (08:00→17:00)
--- NOTE | 2020-01-13 08:07 | NUR ---
Spoke with Dr. Urena regarding pt and dc plan. DC plan is pending EGD/Colonoscopy results. Dr. Urena stated the pt meets inpatient due to symptomatic anemia w/ syncope. He gave order to admit to inpatient.
[2020-01-13 08:57] LABS: BASOPHILS % 0.5 % (0.0-1.0); EOSINOPHILS # (AUTO) 0.1 (0.0-0.4); EOSINOPHILS % 0.8 % (0.0-6.0); HEMATOCRIT 34.4 % (38.2-49.6); HEMOGLOBIN 10.5 g/dL (14.0-18.0); LYMPHOCYTES # (AUTO) 1.2 (1.0-3.2); MEAN CORPUSCULAR HEMOGLOBIN 25.7 pg (28-32); MEAN CORPUSCULAR HGB CONC 30.5 g/dL (31-35); MEAN CORPUSCULAR VOLUME 84.1 fL (81-99); MONOCYTES # (AUTO) 0.8 (0.2-0.8); MONOCYTES % 9.2 % (4.4-11.3); NEUTROPHILS # (AUTO) 6.1 (2.1-6.9); NEUTROPHILS % 74.1 % (38.7-80.0); PLATELET COUNT 267 x10e3/uL (140-360); RED BLOOD COUNT 4.09 x10e6/uL (4.3-5.7); RED CELL DISTRIBUTION WIDTH 14.8 % (11.7-14.4)
[2020-01-13] MEDS ORDERED: CYANOCOBALAMIN INJ 1,000 MCG/ML VIAL IM SCH (09:00)
[2020-01-13 09:17] LABS: ANION GAP 16.3 mmol/L (8-16); CALCIUM 9.2 mg/dL (8.4-10.2); CREATININE, SERUM 1.26 mg/dL (0.72-1.25); POTASSIUM 4.3 mmol/L (3.5-5.1)
[2020-01-13 09:55] LABS: CREATINE KINASE MB 4.3 ng/mL (0-5.0)
--- NOTE | 2020-01-13 10:04 | NUR ---
PATIENT OFF THE UNIT @ 1004 VIA STRETCHER, WENT TO THE OR. PATIENT LEFT THE UNIT IN STABLE CONDITION, NO S/S OF DISTRESS NOTED.
--- NOTE | 2020-01-13 10:46 | Progress Note ---
DATE: SUBJECTIVE: The patient is seen and examined today. The patient appears comfortable. Clinically doing better. Denies any new symptoms. No active GI bleed. PHYSICAL EXAMINATION: GENERAL: Alert, awake, communicative. HEENT: Normocephalic and atraumatic. Sclerae pink. Conjunctivae clear. NECK: Supple. CHEST: Clear to auscultation. ABDOMEN: Soft. EXTREMITIES: No edema. IMAGING: Reviewed. LABORATORY DATA: Current hemoglobin 10.1, hematocrit 31.8, platelet count 239. ASSESSMENT AND PLAN: 1. The patient with history of coronary artery disease, peripheral vascular disease, admitted through emergency with severe anemia and syncopal episode. The patient's current hemoglobin improved after blood transfusion to 10.1. The patient's anemia workup is consistent with mild B12 and iron deficiency. 2. The patient is currently on iron replacement treatment. 3. Following GI. 4. He scheduled for GI workup this morning. RECOMMENDATIONS: 1. Continue iron infusion. 2. Continue to monitor CBC. 3. Continue to hold anticoagulation. 4. Agree with primary about Watchman procedure for atrial fibrillation. 5. We will monitor CBC. 6. We will monitor patient very closely. MD KD Phelps/SHERWIN /[id number]
--- NOTE | 2020-01-13 11:56 | NUR ---
PT CONVERTED TO INPATIENT, SW WENT TO THE ROOM TO GIVE IMM LETTER BUT PT WAS NOT IN THE ROOM, PT GONE TO OR PER NURSE.
--- NOTE | 2020-01-13 12:16 | NUR ---
PATIENT ARRIVED BACK TO THE UNIT @ 1215 VIA STRETCHER, BACK FROM THE OR. PATIENT IN STABLE STABLE CONDITION, NO S/S OF DISTRESS NOTED.
--- NOTE | 2020-01-13 13:16 | Operative Report ---
DATE OF PROCEDURE: 01/13/2020 SURGEON: Marito Gutierrez MD PROCEDURES: EGD with biopsies, and a colonoscopy with polypectomy. INDICATIONS FOR EGD: Iron deficiency anemia, dark stools. INDICATIONS FOR COLONOSCOPY: Iron-deficiency anemia. MEDICATIONS: The patient was done under MAC, please see anesthesiologist's note. PROCEDURE IN DETAIL: With the patient in left lateral decubitus position, a flexible fiberoptic Olympus gastroscope was introduced into the esophagus under direct visualization without any difficulty. Grade 1 esophageal varices were noted in the esophagus. A minute tongue of velvety red mucosa was noted to extend proximally from the GE junction; biopsies were obtained to rule out Torres. The scope was then advanced with ease into the stomach, mucosa overlying the antrum and the body revealed some patchy erythema and low-grade edema, and biopsies were obtained, and sent to stain for H. pylori. Pylorus was of normal contour and shape, it was intubated with ease and the scope was advanced all the way to the second portion of the duodenum. The scope was then withdrawn slowly, mucosa overlying the proximal second portion appeared to be within normal limits and biopsies were obtained to rule out sprue; biopsies were also obtained from the duodenal bulb. Minute ulcers were also noted in the duodenal bulb without active bleeding. The scope was then withdrawn back into the stomach and retroflexed, the fundal diverticulum was noted. The cardia appeared to be within normal limits. The scope was then straightened out, the stomach was decompressed, the scope was subsequently withdrawn. The patient tolerated the procedure well. IMPRESSION: 1. Grade 1 esophageal varices. 2. Rule out Torres esophagus. 3. Gastritis, biopsied, biopsies sent to stain for H. pylori. 4. Fundal diverticulum. 5. Duodenal bulb ulcers, minute without active bleeding or stigmata of recent hemorrhage. 6. Rule out sprue. PLAN: 1. Follow up histology. 2. Initiate Protonix 40 mg one p.o. q.a.m. a.c. DESCRIPTION OF PROCEDURE: The patient was then turned around after adequate lubrication of the anal canal, a flexible fiberoptic Olympus colonoscope was inserted into the rectum with ease and advanced all the way to the cecum. Mucosa overlying the cecum appeared to be within normal limits. Two minute polyps were removed per hot biopsy forceps from the ascending colon. One polyp was hot snared from the proximal transverse colon. All large approximately 2 cm sessile polypoid lesion was removed per piecemeal hot snare polypectomy from the distal transverse colon, site was hemoclipped x3 and it was tattooed. The descending colon grossly appeared to be within normal limits. Diverticular disease was noted to involve the descending and the sigmoid colon. Three polyps were hot snared from the sigmoid colon. Two polyps were hot biopsied from the rectum. The scope was then retroflexed into the distal rectum and moderate-sized internal hemorrhoids were noted, none of which was actively bleeding. The scope was then straightened out, it was subsequently withdrawn. The patient tolerated the procedure well. IMPRESSION: 1. Ascending colon polyps x2, hot biopsied. 2. Transverse colon polyp, hot snared. 3. Distal transverse colon polyp, approximately 2 cm in size, sessile, removed per piecemeal hot snare polypectomy, and site hemoclipped x3 and tattooed. 4. Diverticulosis. 5. Sigmoid colon polyps x3, hot snared. 6. Rectal polyps x2, hot biopsied. 7. Internal hemorrhoids, none actively bleeding. PLAN: 1. Follow up histology. 2. Initiate high-fiber, low-fat diet. 3. Initiate high-fiber supplement. 4. Timing of followup colonoscopy pending pathology report. Marito Gutierrez MD [facility] [place]/SHERWIN /[id number] cc: Hema Urena MD
[2020-01-13] MEDS: FINASTERIDE 5 MG TAB PO SCH (13:29)
[2020-01-13] MEDS: GLIMEPIRIDE 2 MG TAB PO SCH (13:29)
[2020-01-13] MEDS: OMEGA 3 POLYUNSAT FATTY ACIDS 1000 MG SOFTGEL PO SCH (13:29)
[2020-01-13] MEDS: IRON SUCROSE 100 MG in SODIUM CHLORIDE 0.9% 100 ML 100 ML IV SCH (13:47)
[2020-01-13] MEDS: BENAZEPRIL HCL 10 MG TAB PO SCH (13:47)
--- NOTE | 2020-01-13 14:01 | Progress Note ---
DATE: 01/13/2020 Cardiology Progress Note SUBJECTIVE: No major events as blood pressure has been running little bit low. Had colonoscopy with several polyps removed yesterday. OBJECTIVE: VITAL SIGNS: Temperature afebrile, pulse 79, respiratory rate 16, blood pressure 130/75, saturating 100% on room air. GENERAL: Well developed, well nourished in no acute distress. CARDIOVASCULAR: Regular rate and rhythm. No murmurs, rubs, or gallops. LUNGS: Clear to auscultation anteriorly. ABDOMEN: Soft, nontender, nondistended. NEURO AND PSYCH: Alert and oriented to person, place, and time. Normal affect. INPATIENT MEDICATIONS: Reviewed. LABORATORY DATA: Reviewed. Hemoglobin is now 10.5, GFR 56. ASSESSMENT/PLAN: 1. Acute anemia due to gastrointestinal blood loss. 2. Near syncope. 3. History of coronary artery disease, status post coronary artery bypass graft. 4. History of peripheral arterial disease. 5. History of permanent pacemaker placement. PLAN: Given acute GI blood loss recently, status post colonoscopy, now hemoglobin stable. Recommend resuming aspirin 81 mg daily at the very least. Okay to hold Plavix as last PCI was in 2011. We will decrease his amlodipine from 10 mg to 5 mg given blood pressure has been running on the lower side recently and patient complained about feeling a little dizzy yesterday. Thank you for this consult. We will continue to follow. MD REBECCA Valencia/SHERWIN /[id number]
[2020-01-13] MEDS ORDERED: GLUCAGON FOR INJ 1 MG VIAL ONE (14:04)
[2020-01-13] MEDS ORDERED: EPHEDRINE SULFATE INJ 50 MG/ML VIAL ONE (14:04)
[2020-01-13] MEDS ORDERED: PROPOFOL IV EMULSION 10 MG/ML 20 ML VIAL ONE (14:04)
--- NOTE | 2020-01-13 14:35 | Diagnostic Imaging Report ---
EXAM: Right Upper Quadrant Ultrasound INDICATION: ^R/O HEPATITIS ^[id number] ^[id number] COMPARISON: CT abdomen and pelvis 05/26/2019 TECHNIQUE: Transverse and longitudinal images of the right upper abdomen were obtained. FINDINGS: Liver: Size: 12.9 cm in the right midclavicular line, normal Appearance: Normal echogenicity, smooth contour Mass: No focal masses Gallbladder: Stones/Sludge: Small amount of sludge Wall: 0.2 cm Appearance: No wall thickening, pericholecystic fluid or hydrops. Sonographic Martin's Sign: Negative Bile Ducts: Intrahepatic Ducts: No dilatation Extrahepatic Ducts: Common bile duct measures 0.4 cm, no dilatation Pancreas: Visualized portions of the pancreatic head, neck and proximal body are normal. Kidneys: Length: Right 9.6 cm Echogenicity: Normal Collecting System: No hydronephrosis Stone: None Cyst/Mass: None Vessels: Aorta: Not well visualized Inferior Vena Cava: Visualized portions are normal Main Portal Vein: 0.7 cm, normal size with hepatopetal flow. Free Fluid: No ascites or pleural effusion IMPRESSION: Gallbladder sludge without sonographic findings to suggest cholecystitis. Normal appearance of the liver. Reference values: LV hyper to kid LV hypo to spleen Dockery hyper to LV Liver Male < 16 cm Female < 15 cm Kidneys: NL 9-12 cm, <13 cm Spleen < 12 cm CBD < 7 mm CHD < 4-5 mm GB Wall < 3 mm Hydrops > 10 x 5 cm PV < 13 mm Panc. duct 3-2-1 Signed by: Dr. Dana London M.D. on 01/13/2020 2:32 PM
[2020-01-13] MEDS ORDERED: DOXYCYCLINE HY100 MG PO (14:58)
[2020-01-13] MEDS ORDERED: BACTRIM DS TAB1 EACH PO (14:59)
--- NOTE | 2020-01-13 15:18 | NUR ---
DR. Mauricio RMAOS HAS GIVEN CLEARANCE FOR THE PATIENT TO DISCHARGE IF THE PATIENT TOLERATES LUNCH ALONG WITH A PRESCRIPTION. DR. THOMPSON HAS CLEARED THE PATIENT AND WROTE PRESCRIPTIONS FOR THE PATIENT. Addendum: 01/13/20 at 1528 by Magdalena Kaplan RN ENTRY ERROR
--- NOTE | 2020-01-13 15:28 | NUR ---
DR. Mauricio RAMOS HAS GIVEN CLEARANCE FOR THE PATIENT TO DISCHARGE IF THE PATIENT TOLERATES LUNCH ALONG WITH A PRESCRIPTION.
--- NOTE | 2020-01-13 18:06 | NUR ---
PATIENT DISCHARGED HOME. PATIENT OFF THE UNIT @ 172 ACCOMPANIED BY THE RN TO THE LOBBY. PATIENT IN STABLE CONDITION, NO S/S OF DISTRESS NOTED. NO PAIN NOTED. IV ACCESS REMOVED WITH TIP INTACT. ALL PERSONAL ITEMS TAKEN WITH THE PATIENT. DISCHARGE TEACHING AND INSTRUCTIONS GIVEN TO THE PATIENT. PATIENT VERBALIZED UNDERSTANDING. DISCHARGE PAPERWORK AND PRESCRIPTIONS GIVEN TO THE PATIENT.
[2020-01-14] MEDS ORDERED: ASPIRIN 81 MG ENTERIC COATED PO SCH (09:00)
[2020-01-14] MEDS ORDERED: AMLODIPINE BESYLATE 5 MG TAB PO SCH (09:00)
== END 2020-01-13 17:28 | disposition home or self-care (01) | DRG 369 ==
LOC: MED/SURG3 12:43 → OBSVTOIN 01-13 08:05
PROVIDERS: ADMIT Family Medicine; ATTEND Family Medicine
PROC: 30233N1 Transfusion of Nonautologous Red Blood Cells into Peripheral Vein, Percutaneous Approach (ICD-10-PCS; 2020-01-12)
PROC: 0DBN8ZX Excision of Sigmoid Colon, Via Natural or Artificial Opening Endoscopic, Diagnostic (ICD-10-PCS; 2020-01-13)
PROC: 0DBP8ZX Excision of Rectum, Via Natural or Artificial Opening Endoscopic, Diagnostic (ICD-10-PCS; 2020-01-13)
PROC: 0DB98ZX Excision of Duodenum, Via Natural or Artificial Opening Endoscopic, Diagnostic (ICD-10-PCS; principal; 2020-01-13 10:00)
PROC: 0DB68ZX Excision of Stomach, Via Natural or Artificial Opening Endoscopic, Diagnostic (ICD-10-PCS; 2020-01-13 10:00)
PROC: 0DBK8ZX Excision of Ascending Colon, Via Natural or Artificial Opening Endoscopic, Diagnostic (ICD-10-PCS; 2020-01-13 10:00)
PROC: 0DBL8ZX Excision of Transverse Colon, Via Natural or Artificial Opening Endoscopic, Diagnostic (ICD-10-PCS; 2020-01-13 10:00)
DX: I85.01 Esophageal varices with bleeding (principal); D62 Acute posthemorrhagic anemia; D50.9 Iron deficiency anemia, unspecified; R55 Syncope and collapse; I10 Essential (primary) hypertension; I25.10 Atherosclerotic heart disease of native coronary artery without angina pectoris; E11.21 Type 2 diabetes mellitus with diabetic nephropathy; E03.9 Hypothyroidism, unspecified; N40.0 Benign prostatic hyperplasia without lower urinary tract symptoms; I48.0 Paroxysmal atrial fibrillation; E11.51 Type 2 diabetes mellitus with diabetic peripheral angiopathy without gangrene; E53.8 Deficiency of other specified B group vitamins; K29.70 Gastritis, unspecified, without bleeding; K26.9 Duodenal ulcer, unspecified as acute or chronic, without hemorrhage or perforation; K31.4 Gastric diverticulum; K63.5 Polyp of colon; K57.30 Diverticulosis of large intestine without perforation or abscess without bleeding; K62.1 Rectal polyp; K64.8 Other hemorrhoids; Z79.84 Long term (current) use of oral hypoglycemic drugs; Z79.01 Long term (current) use of anticoagulants; Z95.1 Presence of aortocoronary bypass graft; Z88.0 Allergy status to penicillin; Z95.0 Presence of cardiac pacemaker; I25.2 Old myocardial infarction; Z11.59 Encounter for screening for other viral diseases
CPT/HCPCS: 36415; 43239; 44391; 45381; 45384; 76705; 80048; 80053; 82550; 82553; 82607; 82728; 82746; 82948; 83540; 83880; 84466; 84484; 85025; 86850; 86900; 86920; 88305; 88312; 93041; G0378; J1610; J1756; J3420; J7050; P9016

== ENCOUNTER → 2020-04-23 | Day surgery (SDC) | payer MEDICARE, BC ==
[2020-04-18 10:16] LABS: BASOPHILS % 0.3 % (0.0-1.0); EOSINOPHILS # (AUTO) 0.1 (0.0-0.4); HEMATOCRIT 33.4 % (38.2-49.6); HEMOGLOBIN 9.6 g/dL (14.0-18.0); MEAN CORPUSCULAR HEMOGLOBIN 24.4 pg (28-32); MEAN CORPUSCULAR HGB CONC 28.7 g/dL (31-35); NEUTROPHILS # (AUTO) 4.8 (2.1-6.9); NEUTROPHILS % 69.1 % (38.7-80.0); PLATELET COUNT 231 x10e3/uL (140-360); RED BLOOD COUNT 3.93 x10e6/uL (4.3-5.7); RED CELL DISTRIBUTION WIDTH 22.7 % (11.7-14.4)
[2020-04-18 10:45] LABS: ALANINE AMINOTRANSFERASE 22 IU/L (0-55); ALBUMIN 3.2 g/dL (3.5-5.0); ALKALINE PHOSPHATASE 95 IU/L (40-150); ANION GAP 12.9 mmol/L (8-16); BLOOD UREA NITROGEN 14 mg/dL (7-26); BUN/CREATININE RATIO 12 (6-25); CALCIUM 8.2 mg/dL (8.4-10.2); CARBON DIOXIDE 28 mmol/L (22-29); CHLORIDE 107 mmol/L (98-107); CREATININE, SERUM 1.17 mg/dL (0.72-1.25); EST GLOMERULAR FILTRATION RATE > 60 ML/MIN (60-); GLUCOSE 124 mg/dL (74-118); POTASSIUM 3.9 mmol/L (3.5-5.1); SODIUM 144 mmol/L (136-145)
[~2020-04-23] VITALS: Ht 174 cm; Wt 86.2 kg
[~2020-04-23] MED LIST changes: +ASPIRIN EC81 MG PO; +BACTRIM DS TAB1 EACH PO; +BENZOCAINE 20% SPR 60 ML CAN ONE; +CARVEDILOL12.5 MG PO; +DOXYCYCLINE HY100 MG PO; +LIDOCAINE HCL 2% LOCAL INJ 5 ML SDV VIAL INJ ONE; +MIDAZOLAM HCL 2 MG/2 ML VIAL ONE; +OMEGA-31000 MG PO; +PANTOPRAZOLE SO40 MG PO; +PROPOFOL IV EMULSION 10 MG/ML 20 ML VIAL ONE; +SODIUM CHLORIDE 0.9% 1000ML 1,000 ML ONE; +TORSEMIDE20 MG PO
[2020-04-23 13:17] VITALS: BP 80/54
[2020-04-23 13:30] VITALS: BP 96/59
[2020-04-23 13:45] VITALS: BP 99/61
== END | disposition home or self-care (01) ==
LOC: OR 10:50
PROVIDERS: ATTEND Internal Medicine Interventional Cardiology
DX: I48.0 Paroxysmal atrial fibrillation (principal); Z95.818 Presence of other cardiac implants and grafts; I34.0 Nonrheumatic mitral (valve) insufficiency; I25.810 Atherosclerosis of coronary artery bypass graft(s) without angina pectoris; I10 Essential (primary) hypertension; G47.33 Obstructive sleep apnea (adult) (pediatric); J44.9 Chronic obstructive pulmonary disease, unspecified; E11.9 Type 2 diabetes mellitus without complications; F17.210 Nicotine dependence, cigarettes, uncomplicated; Z88.0 Allergy status to penicillin; Z01.812 Encounter for preprocedural laboratory examination; Z20.822 Contact with and (suspected) exposure to COVID-19; Z79.84 Long term (current) use of oral hypoglycemic drugs; Z95.1 Presence of aortocoronary bypass graft; Z95.5 Presence of coronary angioplasty implant and graft; Z95.0 Presence of cardiac pacemaker; Z86.73 Personal history of transient ischemic attack (TIA), and cerebral infarction without residual deficits
CPT/HCPCS: 36415 ×2; 80053; 82948; 85025; 93320; 93325; J2001; J2250; J2704; J7030; U0002; 93307; 93312

== ENCOUNTER → 2021-07-24 | Day surgery (SDC) | payer MEDICARE, BC ==
[2021-07-22 14:29] LABS: BASOPHILS % 0.3 % (0.0-1.0); EOSINOPHILS # (AUTO) 0.2 (0.0-0.4); HEMATOCRIT 36.7 % (38.2-49.6); HEMOGLOBIN 11.3 g/dL (14.0-18.0); LYMPHOCYTES # (AUTO) 0.8 (1.0-3.2); LYMPHOCYTES % 7.4 % (18.0-39.1); MEAN CORPUSCULAR HEMOGLOBIN 29.4 pg (28-32); MEAN CORPUSCULAR HGB CONC 30.8 g/dL (31-35); MEAN CORPUSCULAR VOLUME 95.6 fL (81-99); MONOCYTES # (AUTO) 1.3 (0.2-0.8); MONOCYTES % 11.8 % (4.4-11.3); NEUTROPHILS # (AUTO) 8.4 (2.1-6.9); NEUTROPHILS % 77.6 % (38.7-80.0); PLATELET COUNT 258 x10e3/uL (140-360); RED BLOOD COUNT 3.84 x10e6/uL (4.3-5.7); RED CELL DISTRIBUTION WIDTH 23.3 % (11.7-14.4)
[~2021-07-24] MED LIST changes: +ALLOPURINOL100 MG PO; +AMLODIPINE BESYL5 MG PO; -BENZOCAINE 20% SPR 60 ML CAN ONE; +EPHEDRINE SULFATE INJ 50 MG/ML VIAL ONE; +FENTANYL CITRATE/PF 100MCG/2 ML INJ ONE; +GLUCAGON FOR INJ 1 MG VIAL ONE; +HUMALOG100 UNIT/1; +HYOSCYAMINE SULFATE 0.5 MG/ML INJ ONE; +METOPROLOL SUCC50 MG PO; +PROTONIX20 MG PO; -SODIUM CHLORIDE 0.9% 1000ML 1,000 ML ONE
[2021-07-24 12:30] VITALS: BP 132/75
== END | disposition home or self-care (01) ==
LOC: OR 08:31
PROVIDERS: ATTEND Internal Medicine Gastroenterology
DX: D12.3 Benign neoplasm of transverse colon (principal); D12.4 Benign neoplasm of descending colon; K62.1 Rectal polyp; K29.70 Gastritis, unspecified, without bleeding; K22.70 Barrett's esophagus without dysplasia; I85.00 Esophageal varices without bleeding; K31.4 Gastric diverticulum; K31.9 Disease of stomach and duodenum, unspecified; K57.30 Diverticulosis of large intestine without perforation or abscess without bleeding; K64.8 Other hemorrhoids; Z71.3 Dietary counseling and surveillance; D64.89 Other specified anemias; E11.9 Type 2 diabetes mellitus without complications; I69.354 Hemiplegia and hemiparesis following cerebral infarction affecting left non-dominant side; I10 Essential (primary) hypertension; I25.10 Atherosclerotic heart disease of native coronary artery without angina pectoris; I48.91 Unspecified atrial fibrillation; Z88.0 Allergy status to penicillin; Z01.810 Encounter for preprocedural cardiovascular examination; Z01.812 Encounter for preprocedural laboratory examination; Z20.822 Contact with and (suspected) exposure to COVID-19; Z79.82 Long term (current) use of aspirin; Z79.02 Long term (current) use of antithrombotics/antiplatelets; Z79.899 Other long term (current) drug therapy; Z68.27 Body mass index [BMI] 27.0-27.9, adult; Z95.0 Presence of cardiac pacemaker
CPT/HCPCS: 36415 ×2; 43239; 43270; 45380; 45385; 82948; 85025; 88305; 93005; C9113; J1610; J1980; J2001; J2250; J2704; J3010; U0002; 43255; 45378; 45384

== ENCOUNTER → 2021-08-05 | Outpatient (CLI) | payer MEDICARE, BC ==
[~2021-08-05] MED LIST changes: -EPHEDRINE SULFATE INJ 50 MG/ML VIAL ONE; -FENTANYL CITRATE/PF 100MCG/2 ML INJ ONE; -GLUCAGON FOR INJ 1 MG VIAL ONE; -HYOSCYAMINE SULFATE 0.5 MG/ML INJ ONE; -LIDOCAINE HCL 2% LOCAL INJ 5 ML SDV VIAL INJ ONE; -MIDAZOLAM HCL 2 MG/2 ML VIAL ONE; -PROPOFOL IV EMULSION 10 MG/ML 20 ML VIAL ONE
== END ==
LOC: DX 09:09
PROVIDERS: ATTEND Internal Medicine Gastroenterology
DX: D64.89 Other specified anemias (principal); Z20.822 Contact with and (suspected) exposure to COVID-19
CPT/HCPCS: 74250; U0002